=== PATIENT | male | born 1935 | race Caucasian/White ===

== ENCOUNTER 2016-10-01 22:27 | Emergency (ER) | payer MEDICARE, BC ==
[2016-10-01 22:45] VITALS: BP 149/95
[2016-10-01] MEDS ORDERED: diphenhydrAMINE 50 MG/ML SDV IM ONE (23:09)
--- NOTE | 2016-10-01 23:21 | EDM.PDOC ---
ED HPI GENERAL MEDICAL PROBLEM - General Chief Complaint: Skin Complaint Stated Complaint: ITCHING ALL OVER Time Seen by Provider: 10/01/16 22:57 Source of Information: Reports: Patient History Limitations: Reports: No Limitations - History of Present Illness INITIAL COMMENTS - FREE TEXT/NARRATIVE: rash; this is a 81 y/o male presents to ER with , reports was doing lawn work this evening, weed whipping grass and other weeds, also reports got stung by a bee. later went into to shower, noted a very itchy rash with bumps. denies any cough or shortness of breath. Onset: Sudden Duration: Hour(s): Location: Reports: Generalized Quality: Reports: Other (pruritic rash) Severity: Moderate Improves with: Reports: None Worsens with: Reports: None Associated Symptoms: Reports: No Other Symptoms - Related Data Allergies Allergy/AdvReac Type Severity Reaction Status Date / Time No Known Allergies Allergy Verified 10/01/16 22:50 Home Meds: Home Meds . [Unable to Verify Home Med List] 10/01/16 [History] Past Medical History Cardiovascular History: Reports: Hypertension Musculoskeletal History: Reports: Back Pain, Chronic Oncologic (Cancer) History: Reports: Basal Cell Carcinoma Social & Family History - Tobacco Use Smoking Status *Q: Never Smoker - Caffeine Use Caffeine Use: Reports: Coffee - Recreational Drug Use Recreational Drug Use: No ED ROS GENERAL - Review of Systems Review Of Systems: See Below Constitutional: Reports: No Symptoms HEENT: Reports: No Symptoms Respiratory: Reports: No Symptoms Cardiovascular: Reports: No Symptoms Endocrine: Reports: No Symptoms GI/Abdominal: Reports: No Symptoms Skin: Reports: Rash Neurological: Reports: No Symptoms Psychiatric: Reports: No Symptoms Immunologic: Reports: No Symptoms ED EXAM, SKIN/RASH Exam: See Below Exam Limited By: No Limitations General Appearance: Alert, WD/WN, No Apparent Distress Ears: Normal External Exam, Normal Canal, Hearing Grossly Normal, Normal TMs Nose: Normal Inspection, Normal Mucosa, No Blood Throat/Mouth: Normal Inspection, Normal Lips, Normal Teeth, Normal Gums, Normal Oropharynx, Normal Voice, No Airway Compromise Head: Atraumatic, Normocephalic Neck: Normal Inspection, Supple, Non-Tender, Full Range of Motion Respiratory/Chest: No Respiratory Distress, Lungs Clear, Normal Breath Sounds, No Accessory Muscle Use, Chest Non-Tender Cardiovascular: Normal Peripheral Pulses, Regular Rate, Rhythm, No Edema, No Murmur GI/Abdominal: Normal Bowel Sounds, Soft, Non-Tender, No Distention (Male) Exam: Deferred Rectal (Males) Exam: Deferred Back Exam: Normal Inspection, Full Range of Motion, Other (hives noted to back) Extremities: Normal Inspection, Normal Range of Motion, Non-Tender, No Pedal Edema, Normal Capillary Refill Neurological: Alert, Oriented, CN II-XII Intact, Normal Cognition, Normal Gait, Normal Reflexes, No Motor/Sensory Deficits Psychiatric: Normal Affect, Normal Mood Skin: Rash (hives noted to arms, abdomen and lower back. bee sting to lateral left back) Location, Skin: Generalized Characteristics: Urticarial Associated features: Warmth Lymphatic: No Adenopathy Course - Vital Signs Last Recorded V/S: Last Vital Signs Temp 35.7 C 10/01/16 22:49 Pulse 58 L 10/01/16 22:44 Resp 16 10/01/16 22:49 BP 149/95 H 10/01/16 22:49 Pulse Ox 95 10/01/16 22:49 - Orders/Labs/Meds Meds: Medications Discontinued Medications Generic Name Dose Route Start Last Admin Trade Name Freq PRN Reason Stop Dose Admin Diphenhydramine HCl 50 mg 10/01/16 23:09 10/01/16 23:23 Benadryl IM 10/01/16 23:10 50 mg ONETIME ONE Administration - Re-Assessments/Exams Free Text/Narrative Re-Assessment/Exam: 10/01/16 23:52 given Benadryl 50 mg im Departure - Departure Time of Disposition: 23:45 Disposition: Home, Self-Care 01 Condition: Good Clinical Impression: Hives Bee sting Qualifiers: Encounter type: initial encounter Injury intent: accidental or unintentional Qualified Code(s): T63.441A - Toxic effect of venom of bees, accidental ( unintentional), initial encounter - Discharge Information Instructions: Hives, Bee, Wasp, or Hornet Sting Referrals: PCP,None [Primary Care Provider] - Forms: ED Department Discharge Care Plan Goals: hives and bee sting -Benadryl 50 mg IM in ER, may take benadryl 25mg every 4 to 6 hours as needed for rash and itch -start tonight, Medrol 4mg dose as directed -may apply Hydrocortisone 1% to rash two to three times a day a needed for itch rest, avoid strenuous work or activities for the next 3 to 5 day, as exercise and work can may hives worse Return to ER immediately or call 911 for any shortness of breath, coughing, throat tightness or not improving. - Problem List & Annotations (1) Bee sting SNOMED Code(s): 033919292 Code(s): T63.441A - TOXIC EFFECT OF VENOM OF BEES, ACCIDENTAL, INIT Status : Acute Priority: High Qualifiers: Encounter type: initial encounter Injury intent: accidental or unintentional Qualified Code(s): T63.441A - Toxic effect of venom of bees, accidental (unintentional), initial encounter (2) Hives SNOMED Code(s): 523143192 Code(s): L50.9 - URTICARIA, UNSPECIFIED Status: Acute Priority: High - Problem List Review Problem List Initiated/Reviewed/Updated: Yes - Assessment/Plan Plan: hives and bee sting -Benadryl 50 mg IM in ER, may take benadryl 25mg every 4 to 6 hours as needed for rash and itch -start tonight, Medrol 4mg dose as directed -may apply Hydrocortisone 1% to rash two to three times a day a needed for itch rest, avoid strenuous work or activities for the next 3 to 5 day, as exercise and work can may hives worse Return to ER immediately or call 911 for any shortness of breath, coughing, throat tightness or not improving.
== END 2016-10-01 23:45 | disposition home or self-care (01) ==
LOC: JP.ED 22:27
DX: T63.441A Toxic effect of venom of bees, accidental (unintentional), initial encounter (principal); L50.9 Urticaria, unspecified; I10 Essential (primary) hypertension; Z85.828 Personal history of other malignant neoplasm of skin
CPT/HCPCS: 96372; 99283; J1200

== ENCOUNTER 2018-11-08 07:40 | Day surgery (SDC) | payer BC, MEDICARE ==
[2018-11-08] MEDS ORDERED: Dextrose 5%-Lactated Ringers 1,000 ML IV SCH (08:15)
[2018-11-08] MEDS ORDERED: Propofol 200 MG/20 ML SDV ONE (08:31)
[2018-11-08] MEDS ORDERED: fentaNYL 100 MCG/2 ML SDV ONE (08:31)
[2018-11-08] MEDS ORDERED: Lisinopril 20 MG Tab PO ONE (11:15)
[2018-11-08] MEDS ORDERED: Meropenem 500 MG in Sodium Chloride 0.9% 50 ML IV ONE (11:30)
[2018-11-08 13:07] VITALS: PULSE 53
[2018-11-08 13:08] VITALS: BP 174/79
--- NOTE | 2018-11-14 14:32 | OR ---
DATE OF PROCEDURE: 11/08/2018 PREOPERATIVE DIAGNOSIS: History of rectal bleeding. POSTOPERATIVE DIAGNOSES: 1. Sessile mass, hepatic flexure of colon. 2. Left colonic diverticulosis with focal diverticulitis and that is in sigmoid colon. 3. History of bleeding, likely secondary to internal hemorrhoids. OPERATIVE PROCEDURE: A flexible colonoscopy with: 1. Biopsies of the mass at the hepatic flexure of colon. 2. Injection of Naomi ink into the submucosa to roughly identify location of mass. ANESTHESIA: IV sedation. INDICATIONS FOR PROCEDURE: An 83-year-old presenting with history of recent rectal bleeding. Plan is to proceed with flexible colonoscopy with biopsies and/or polypectomy as indicated. Potential risks including bleeding and perforation were discussed, and the patient wishes to proceed. DETAILS OF PROCEDURE: The patient was taken to the operating room, placed in a left lateral decubitus position. IV sedation was administered, after which the initial digital rectal exam was performed, it was unremarkable. Colonoscope was then passed into the rectum with retroflexion revealing some excoriated hemorrhoidal columns. These would likely account for the patient's history of some bleeding episodes, which occurred at the time right immediately after bowel movement. The scope was then passed sequentially to the level of the cecum. The prep was fairly good with otherwise being a small amount of liquid stool present. The findings included some diverticulosis in the left colon. One of these sites had some purulent material coming from it consistent with a focal area of diverticulitis. Apart from that, the patient had a sessile nodular mass located in the hepatic flexure of the colon. This was a flat type mass, not amenable to endoscopic removal, occupied roughly 1/5 of the circumference of the colon at that level. Apart from that, no additional areas of polyps or other signs of neoplasia were seen. Biopsy of that mass was obtained, and following this, the area was injected with Naomi ink with 3 mL of Naomi ink being injected submucosally adjacent to the mass to help confirm the location during the resection. At that point, the scope was withdrawn. No additional abnormalities were noted and the procedure then concluded. Following the procedure, the plan will be to proceed with a right colon resection next Wednesday, and he will be set up for preoperative consultation with Dr. Purdy tomorrow. Roni Hope MD /[id number]
== END 2018-11-08 13:17 | disposition home or self-care (01) ==
LOC: JP.SDS 07:40
PROVIDERS: ATTEND Surgery
DX: K62.5 Hemorrhage of anus and rectum (principal); D12.3 Benign neoplasm of transverse colon; K57.30 Diverticulosis of large intestine without perforation or abscess without bleeding; K57.32 Diverticulitis of large intestine without perforation or abscess without bleeding; I10 Essential (primary) hypertension; Z88.1 Allergy status to other antibiotic agents
CPT/HCPCS: 36415; 45380; 45381; 80053; 82378; 83735; 83880; 84100; 85027; 88305; A9270; J2185; J2704; J3010; J7042; J7050

== ENCOUNTER 2018-11-15 07:23 | Inpatient (IN) | payer MEDICARE ==
[~2018-11-15 07:23] MED LIST: Meropenem 500 MG SDV ONE
[2018-11-15] MEDS ORDERED: Dextrose 5%-Lactated Ringers 1,000 ML IV SCH (08:30)
[2018-11-15] MEDS ORDERED: cefOXitin 2 GM in Sodium Chloride 0.9% 50 ML IV ONE (09:00)
[2018-11-15] MEDS ORDERED: Scopolamine 1.5 MG Transdermal Patch TOP ONE (09:09)
[2018-11-15] MEDS ORDERED: Naloxone 0.4 MG/ML SDV IVPUSH PRN (10:00)
[2018-11-15] MEDS ORDERED: Glycopyrrolate 0.2 MG/ML 5 ML MDV ONE (10:00)
[2018-11-15] MEDS ORDERED: Neostigmine Methylsulfate 1 MG/ML 5 ML Syringe ONE (10:00)
[2018-11-15] MEDS ORDERED: fentaNYL 250 MCG/5 ML SDV ONE (10:00)
[2018-11-15] MEDS ORDERED: Dexamethasone 4 MG/ML SDV ONE (10:00)
[2018-11-15] MEDS ORDERED: Rocuronium 50 MG/5 ML Vial ONE (10:00)
[2018-11-15] MEDS ORDERED: fentaNYL 100 MCG/2 ML SDV ONE ×2 (10:00)
[2018-11-15] MEDS ORDERED: Ondansetron 4 MG/2 ML SDV ONE (10:00)
[2018-11-15] MEDS ORDERED: Succinylcholine 200 MG/10 ML MDV ONE (10:00)
[2018-11-15] MEDS ORDERED: hydrOXYzine HCl 100 MG/2 ML SDV IM PRN (12:49)
[2018-11-15] MEDS ORDERED: Naloxone 0.4 MG/ML SDV IV PRN (12:55)
[2018-11-15] MEDS ORDERED: diphenhydrAMINE 50 MG/ML SDV IVPUSH PRN ×2 (12:55)
[2018-11-15] MEDS ORDERED: Pantoprazole 40 MG Vial IV SCH (15:00)
[2018-11-15] MEDS: cefOXitin 2 GM in Sodium Chloride 0.9% 50 ML IV SCH ×2 (16:01→21:09)
[2018-11-15] MEDS: Lisinopril 20 MG Tab PO SCH (16:01)
[2018-11-15] MEDS: Acetaminophen 500 MG Tab PO SCH ×2 (16:02→21:09)
[2018-11-15] MEDS: VERIFY SCOP PATCH TOP SCH (16:02)
[2018-11-15] MEDS: fentaNYL 2,500 MCG in Sodium Chloride 0.9% 200 ML EPIDUR SCH (16:39)
[2018-11-15] MEDS: Tamsulosin 0.4 MG Cap.ER PO SCH (21:09)
[2018-11-16] MEDS: cefOXitin 2 GM in Sodium Chloride 0.9% 50 ML IV SCH ×2 (05:25→09:44)
[2018-11-16] MEDS: Acetaminophen 500 MG Tab PO SCH ×4 (05:25→23:36)
[2018-11-16] MEDS: Dextrose 5%-Lactated Ringers 1,000 ML IV SCH ×3 (07:22→15:43)
[2018-11-16] MEDS ORDERED: Furosemide 20 MG/2 ML VIAL IV ONE (08:00)
[2018-11-16] MEDS: Bisacodyl 5 MG Tab PO SCH ×2 (08:27→20:02)
[2018-11-16] MEDS: Ibuprofen 400 MG Tab PO SCH ×3 (08:27→20:02)
[2018-11-16] MEDS: VERIFY SCOP PATCH TOP SCH (08:29)
[2018-11-16] MEDS: Lisinopril 20 MG Tab PO SCH (08:29)
[2018-11-16] MEDS: Sennosides 8.6 MG Tab PO SCH ×2 (08:30→20:02)
[2018-11-16] MEDS: fentaNYL 2,500 MCG in Sodium Chloride 0.9% 200 ML EPIDUR SCH (10:37)
[2018-11-16] MEDS: traMADol 50 MG Tab PO SCH ×3 (11:54→23:36)
[2018-11-16] MEDS: Pantoprazole 40 MG Tab.CR PO SCH (16:59)
[2018-11-16] MEDS: Tamsulosin 0.4 MG Cap.ER PO SCH (20:03)
[2018-11-17] MEDS: Dextrose 5%-Lactated Ringers 1,000 ML IV SCH (01:20)
[2018-11-17] MEDS: Ibuprofen 400 MG Tab PO SCH ×4 (03:29→20:48)
[2018-11-17] MEDS: Acetaminophen 500 MG Tab PO SCH ×4 (03:29→21:44)
[2018-11-17] MEDS: traMADol 50 MG Tab PO SCH ×4 (05:00→23:54)
[2018-11-17] MEDS ORDERED: Meropenem 500 MG SDV ONE (06:21)
[2018-11-17] MEDS ORDERED: Bupivacaine 0.5% 50 ML MDV ONE (06:21)
[2018-11-17] MEDS ORDERED: Lidocaine 1% with EPINEPHrine 1:100,000 50 ML MDV ONE (06:21)
[2018-11-17] MEDS ORDERED: Propofol 200 MG/20 ML SDV ONE (07:06)
[2018-11-17] MEDS ORDERED: fentaNYL 100 MCG/2 ML SDV ONE (07:06)
[2018-11-17] MEDS: Bisacodyl 5 MG Tab PO SCH ×2 (09:58→20:47)
[2018-11-17] MEDS: Sennosides 8.6 MG Tab PO SCH ×2 (09:58→20:50)
[2018-11-17] MEDS: Lisinopril 20 MG Tab PO SCH (09:58)
[2018-11-17] MEDS: VERIFY SCOP PATCH TOP SCH (09:59)
[2018-11-17] MEDS: Magnesium Sulfate/Water 2 GM in Premix Bag 1 BAG IV SCH ×3 (10:53→21:44)
[2018-11-17] MEDS ORDERED: Furosemide 20 MG/2 ML VIAL IVPUSH ONE (14:15)
[2018-11-17] MEDS: Ondansetron 4 MG/2 ML SDV IVPUSH PRN ×2 (14:40→19:13)
[2018-11-17] MEDS: Pantoprazole 40 MG Tab.CR PO SCH (16:50)
[2018-11-17] MEDS: Tamsulosin 0.4 MG Cap.ER PO SCH (20:49)
[2018-11-18] MEDS: Dextrose 5%-Lactated Ringers 1,000 ML IV SCH (00:46)
[2018-11-18] MEDS: Ibuprofen 400 MG Tab PO SCH ×4 (01:38→20:43)
[2018-11-18] MEDS: Acetaminophen 500 MG Tab PO SCH ×4 (03:15→21:49)
[2018-11-18] MEDS: Magnesium Sulfate/Water 2 GM in Premix Bag 1 BAG IV SCH ×4 (04:08→21:49)
[2018-11-18] MEDS: traMADol 50 MG Tab PO SCH (05:28)
[2018-11-18] MEDS: Ondansetron 4 MG/2 ML SDV IVPUSH PRN (06:01)
[2018-11-18] MEDS: Sennosides 8.6 MG Tab PO SCH ×2 (08:36→20:38)
[2018-11-18] MEDS: Bisacodyl 5 MG Tab PO SCH ×2 (08:36→20:38)
[2018-11-18] MEDS: Lisinopril 20 MG Tab PO SCH (08:37)
[2018-11-18] MEDS: VERIFY SCOP PATCH TOP SCH (08:41)
--- NOTE | 2018-11-18 08:47 | PN ---
DATE OF SERVICE: 11/16/2018 The patient is postop day #1 from a right colectomy. Clinically, he is doing well. He is little bit hazy in terms of mental status, but this does not otherwise appear to be problematic. Urine output has been a little bit marginal. I am not sure whether or not he might need a little bit of Lasix, and we will give him a 10 mg test dose this morning, as his blood pressures are up a little bit. Otherwise, back down the IV rate later today. We will begin the scheduled ibuprofen and tramadol, in addition to Tylenol, in anticipation of getting the epidural catheter out tomorrow. Also, begin scheduled bowel stimulation with Senokot oral and Dulcolax oral tablets. Plan will be to proceed with delayed primary closure of abdominal incision tomorrow morning. Alanis catheter will be coming out at that time. Roni Hope MD /[id number]
[2018-11-18] MEDS ORDERED: Scopolamine 1.5 MG Transdermal Patch TOP SCH (09:00)
--- NOTE | 2018-11-18 09:44 | PN ---
DATE OF SERVICE: 11/18/2018 The patient has been afebrile with stable vital signs. He tends to be a little bit hypertensive. He did get some Lasix yesterday and we will repeat that dose today. The patient has a little tremulousness, and there is a question whether or not there might be some alcohol withdrawal ongoing, but we will watch this for now. Otherwise, he apparently has moved his bowels, and oral intake is quite good. We will saline lock the IV and give him some potassium orally in anticipation of some potassium loss with the Lasix. We will discontinue the scopolamine patch. He may be ready for discharge home tomorrow. Roni Hope MD /[id number]
[2018-11-18] MEDS ORDERED: Sodium Chloride 0.9% 10 ML Syringe IV PRN (10:50)
[2018-11-18] MEDS ORDERED: Furosemide 20 MG/2 ML VIAL IVPUSH ONE (11:30)
[2018-11-18] MEDS ORDERED: Potassium Chloride 20 MEQ Tab.ER PO ONE (11:30)
[2018-11-18] MEDS: D5 1/2 NS w/ 20 mEq/L KCl 1,000 ML IV SCH (14:52)
[2018-11-18] MEDS: Potassium Chloride 20 MEQ, Lidocaine 1% 2 ML in Sodium Chloride 0.9% 100 ML IV SCH ×2 (14:59→17:08)
[2018-11-18] MEDS: Pantoprazole 40 MG Tab.CR PO SCH (17:12)
[2018-11-18] MEDS: Tamsulosin 0.4 MG Cap.ER PO SCH (20:43)
[2018-11-18] MEDS: Melatonin 3 MG Tab PO PRN (21:49)
[2018-11-19] MEDS: D5 1/2 NS w/ 20 mEq/L KCl 1,000 ML IV SCH ×2 (02:40→14:57)
[2018-11-19] MEDS: Ibuprofen 400 MG Tab PO SCH ×4 (04:38→21:03)
[2018-11-19] MEDS: Acetaminophen 500 MG Tab PO SCH ×4 (05:08→21:03)
[2018-11-19] MEDS: Magnesium Sulfate/Water 2 GM in Premix Bag 1 BAG IV SCH (05:08)
[2018-11-19] MEDS: Bisacodyl 5 MG Tab PO SCH ×2 (08:45→21:07)
[2018-11-19] MEDS: Sennosides 8.6 MG Tab PO SCH ×2 (08:45→21:03)
[2018-11-19] MEDS: Lisinopril 20 MG Tab PO SCH (08:45)
[2018-11-19] MEDS: Metoclopramide 10 MG/2 ML SDV IVPUSH SCH ×3 (10:06→21:03)
[2018-11-19] MEDS: Pantoprazole 40 MG Tab.CR PO SCH (16:49)
[2018-11-19] MEDS: Melatonin 3 MG Tab PO PRN (21:03)
[2018-11-19] MEDS: Tamsulosin 0.4 MG Cap.ER PO SCH (21:03)
[2018-11-20] MEDS: Ibuprofen 400 MG Tab PO SCH ×2 (02:57→08:28)
[2018-11-20] MEDS: Acetaminophen 500 MG Tab PO SCH ×2 (05:57→10:48)
[2018-11-20] MEDS: Metoclopramide 10 MG/2 ML SDV IVPUSH SCH ×2 (05:58→09:07)
[2018-11-20 07:25] VITALS: BP 174/76; PULSE 51
[2018-11-20] MEDS: Bisacodyl 5 MG Tab PO SCH (08:29)
[2018-11-20] MEDS: Sennosides 8.6 MG Tab PO SCH (08:29)
[2018-11-20] MEDS: Lisinopril 20 MG Tab PO SCH (08:29)
--- NOTE | 2018-11-20 09:57 | PN ---
DATE OF SERVICE: 11/19/2018 The patient has been afebrile with stable vital signs. No major problem has been noted overnight other than he has had some nausea and a little bit of emesis last evening. He's gone to sips of clear liquids and appears to be doing fairly well this morning. Abdomen is relatively flat. We will try full liquid diet and then adding some Reglan. The path report came back showing numerous premalignant polyps but nothing malignant, so the outlook is very good in that regard. Roni Hope MD /[id number] MTDD
--- NOTE | 2018-11-21 08:18 | DISCH ---
FINAL DIAGNOSIS: Multiple right colonic adenomatous polyps with focal areas of sessile polyps, not amenable to endoscopic removal. SECONDARY DIAGNOSES: 1. Hypertension. 2. Postoperative ileus. 3. Hypomagnesemia. OPERATIVE PROCEDURES: This was done on 11/15/2018, exploratory laparotomy with: 1. Right colectomy. 2. Placement of Interceed mesh to limit recurrent adhesion formation. 3. Delayed primary closure of abdominal incision done on 11/17/2018. HOSPITAL COURSE: This is an 83-year-old presenting with some recent rectal bleeding. The rectal bleeding was felt to most likely be related to hemorrhoids, as the patient had no rectal or left-sided colonic pathology per se, but did have some excoriated hemorrhoids. He was, however, found to have an area of sessile polyp formation in the right colon, not amenable to endoscopic removal. The patient, after passing a stress test, underwent a right colectomy. The final pathology on this showed adenomatous polyps without malignancy. Postoperatively, he had some degree of ileus, but this now appears to be resolving, and he is taking in satisfactory oral intake and moving his bowels. Pain control with Tylenol appeared to be satisfactory. He has been somewhat persistently hypertensive. He says this is a longstanding issue, and we will have him see Dr. Purdy regarding that next week as well and will follow up with Dr. Hope, along with Dr. Purdy, on 11/23/2018. The only additional followup would be a colonoscopy perhaps in 2 years with regard to his bowel status.
--- NOTE | 2018-11-23 13:30 | OR ---
DATE OF PROCEDURE: 11/15/2018 PREOPERATIVE DIAGNOSIS: Sessile polypoid lesions of the ascending colon. POSTOPERATIVE DIAGNOSIS: Sessile polypoid lesions of the ascending colon. OPERATIVE PROCEDURES: Exploratory laparotomy with: 1. Right hemicolectomy (57665). 2. Placement of Interceed mesh to limit adhesion formation between pelvic and abdominal wall and underlying viscera ([id number]). ANESTHESIA: General plus epidural. INDICATION FOR PROCEDURE: This is an 83-year-old presenting with some rectal bleeding. Colonoscopy showed an area of sessile polypoid lesions. I aspirated an area in the right colon more or less at the junction of the ascending and transverse colon and at this point, the patient is to undergo a right colectomy. The potential risks of the procedure were reviewed with the patient and family including bleeding, infection, leaks from various GI tract closures, as well as possibility of cardiopulmonary, septic, or hemorrhagic complications leading to , and the patient wishes to proceed. DETAILS OF PROCEDURE: The patient was taken to the operating room, and after an epidural catheter was placed, general endotracheal anesthetic was induced and a Alanis catheter inserted. A low right subcostal incision was made and carried down through the full-thickness of the abdominal wall. We entered the peritoneal cavity. Naomi ink dye injection into the area of the ascending colon was identified, and otherwise no specific additional pathology was visible or palpable. We then confirmed the plan to proceed with a right hemicolectomy. The peritoneal reflection of the distal small bowel, cecum, ascending colon, and hepatic flexure was then divided with electrocautery and those structures were mobilized medially. Care was taken to avoid injury to the underlying right ureter and duodenum. The distal small bowel was then divided with the KATHI stapler as was the mid transverse colon just to the right of the middle colic vessels. The underlying mesentery was then divided with a combination of young and mesenteric jabari and specimen delivered off the field. An area of sessile polypoid lesion was identified and marked with suture for pathologic examination. At this point, GI tract continuity was established with a [id number] enteroenterostomy between the right colon and distal small bowel with 2 internal firings of the KATHI 60 mm stapler. Common opening was then closed transversely with the same stapler and the angles anastomosed and mesenteric defect approximated with some 3-0 Vicryl stitch. The abdomen was then irrigated with antibiotic-containing saline solution so as to prevent adhesions between the incision including as well as the lower abdomen and pelvic lopez. The omentum was attempted to be mobilized downward, but was not significantly mobile. Given this, an Interceed mesh was placed underneath the incision and then extending down toward the pelvis to space the viscera from those surfaces. At this point, the subcostal incision was closed with 2 layers at the fascial level with #2 Vicryl stitch. The skin and subcutaneous tissue were felt to be high risk for wound infection if closed primarily. We, therefore, packed open and the patient taken to the recovery room in satisfactory condition. There were no evident complications. Roni Hope MD /[id number]
--- NOTE | 2018-11-24 08:07 | OR ---
DATE OF PROCEDURE: 11/17/2018 SURGEON: Roni Hope MD PREOPERATIVE DIAGNOSIS: Open abdominal incision. POSTOPERATIVE DIAGNOSIS: Open abdominal incision. OPERATIVE PROCEDURE: Delayed primary closure of open abdominal incision. ANESTHESIA: IV sedation plus local. INDICATION FOR PROCEDURE: This is an 83-year-old status post a right colectomy for sessile polypoid lesions in the right colon. At the time of the original procedure, he was felt to be at high risk for a wound infection if a primary closure had been undertaken. Given this, the wound was packed open for a planned delayed primary closure at this time. Potential risks including bleeding and infection were reviewed with the patient, and he wishes to proceed. DETAILS OF PROCEDURE: The patient was taken to the operating room and placed in a supine position. IV sedation was administered. Transversus abdominis plane blocks were then placed. This being an oblique subcostal-type incision, both TAP blocks were placed on the side of the incision, that being the right side of the abdomen, using ultrasound guidance. Following the dressing being taken down, the wound was inspected and found to be clean. It was then prepped and draped, anesthetized with 1% lidocaine mixed with Marcaine, and irrigated with a meropenem-containing saline solution. Incision was then closed with 2 layers of 3-0 Vicryl stitch deep and jabari for the skin. Dressing was applied. The patient was taken to the recovery room in a satisfactory condition. Roni Hope MD /[id number]
== END 2018-11-20 13:15 | disposition home or self-care (01) | DRG 330 ==
LOC: JP.SDS 07:23 → JP.MS 07:23 → EDSTATUS 09:00 → JP.MS 11:45
PROVIDERS: ADMIT Surgery; ATTEND Surgery
PROC: 0DTF0ZZ Resection of Right Large Intestine, Open Approach (ICD-10-PCS; principal; 2018-11-15)
PROC: 3E0M05Z Introduction of Adhesion Barrier into Peritoneal Cavity, Open Approach (ICD-10-PCS; 2018-11-15)
PROC: 0WQFXZZ Repair Abdominal Wall, External Approach (ICD-10-PCS; 2018-11-17)
DX: D12.2 Benign neoplasm of ascending colon (principal); K56.7 Ileus, unspecified; I10 Essential (primary) hypertension; E83.42 Hypomagnesemia; K64.9 Unspecified hemorrhoids; Z88.1 Allergy status to other antibiotic agents; Z79.899 Other long term (current) drug therapy
CPT/HCPCS: 36415; 80048; 80053; 83735; 83880; 84100; 85027; 88307; 94762; A9270-GY; C9113; J0171; J0330; J0694; J1100; J1200; J1940; J2001; J2020; J2185; J2405; J2704; J2710; J2765; J2795; J3010; J3475; J3480; J3490; J7030; J7042; J7050